=== PATIENT | female | born 1945 | race American Indian/Alaskan Native ===

== ENCOUNTER 2020-10-04 08:00 | Outpatient (CLI) | payer OTHER | END 2020-10-04 08:30 | disposition home or self-care (01) | LOC: PPH VACUNA 08:00 | DX: Z23 Encounter for immunization (principal) ==

== ENCOUNTER 2020-10-25 08:00 | Outpatient (CLI) | payer OTHER | END 2020-10-25 08:30 | disposition home or self-care (01) | LOC: PPH VACUNA 08:00 | DX: Z23 Encounter for immunization (principal) ==

== ENCOUNTER 2023-03-17 15:46 | Emergency (ER) | payer OTHER ==
[~2023-03-17] VITALS: Ht 139.7 cm; Wt 69.9 kg
[2023-03-17] MEDS ORDERED: ZESTORETIC 20-1 EAC1 (16:13)
[2023-03-17] MEDS ORDERED: JANUMET 50-1,01 EACH (16:14)
[2023-03-17] MEDS ORDERED: GLIMEPIRIDE4 M1 (16:14)
[2023-03-17] MEDS ORDERED: LIPITOR20 MG (16:14)
[2023-03-17 18:44] LABS: HEMATOCRIT 35.6 % (36.0-45.00); HEMOGLOBIN 12.2 g/dL (12.0-15.00); MEAN CELL VOLUME 84.7 fL (80.00-100.00); MEAN CORPUSCULAR HEMOGLOBIN 28.9 pg (27.00-32.0); MEAN CORPUSCULAR HGB CONC 34.2 g/dl (32.0-36.0); PLATELET COUNT 380 K/uL (150-450); RED CELL DISTRIBUTION WIDTH 12.9 % (11.5-14.5)
[2023-03-17 18:46] LABS: URINE APPEARANCE Clear; URINE BILIRRUBIN Negative (NEGATIVE); URINE BLOOD Negative; URINE COLOR Yellow; URINE LEUKOCYTE Negative; URINE NITRATE Negative; URINE PROTEIN Negative (NEGATIVE); URINE UROBILINOGEN 0.2 E.U./dl
[2023-03-17 18:50] LABS: URINE BACTERIA 289.7 uL (0.0-1933); URINE EPITHELIAL CELLS 40.1 uL (0.0-38.8); URINE RBC 8.4 uL (0.0-20.8); URINE WBC 16.6 uL (0.0-23.2)
[2023-03-17 18:58] LABS: ABG PH 7.457 (7.35-7.45)
[2023-03-17 18:59] LABS: ABG PO2 74.5 mmHg (80-100); ABG pCO2 30.7 mmHg (35-45); BASE EXCESS -1.5 mmol/l; BICARBONATE 21.2 mmol/l (23-25); SaO2 95.5 %; Tco2 22.1 mmol/l; allen test SATISFACTORY; o2 21 %; puncture site BRADIAL RIGHT
[2023-03-17 19:03] LABS: URINE GLUCOSE 100 MG/DL (NEGATIVE)
[2023-03-17 19:28] LABS: ALBUMIN 3.2 gm/dL (3.4-5.0); BILIRUBIN TOTAL 0.35 mg/dL (0.3-1.2); CALCIUM 8.7 mg/dL (8.5-10.1); CREATININE SERUM 1.02 mg/dL (0.55-1.02); GFR 52.41; GLOBULINA 4.1 G/DL (2.4-3.5); POTASSIUM 3.59 mEq/L (3.5-5.1); TOTAL PROTEIN 7.3 gm/dL (6.4-8.2)
== END 2023-03-17 23:49 | disposition home or self-care (01) ==
LOC: ER 15:46
PROVIDERS: General Practice
DX: J40 Bronchitis, not specified as acute or chronic (principal); E11.9 Type 2 diabetes mellitus without complications; Z79.84 Long term (current) use of oral hypoglycemic drugs; I10 Essential (primary) hypertension; Z20.822 Contact with and (suspected) exposure to COVID-19
CPT/HCPCS: 36415; 71046; 71250; 82803; 93005; 96365; 99284; J2405